=== PATIENT | male | born 1990 | race Caucasian/White ===

== ENCOUNTER 2024-09-03 15:29 | Emergency (ER) | payer MEDICAID ==
[~2024-09-03] VITALS: Ht 175.3 cm; Wt 101.9 kg
[2024-09-03 15:31] VITALS: TEMP 100.6
[2024-09-03 16:20] LABS: LEUKOCYTE ESTERASE ,URINE TRACE (Neg); NITRITES, URINE POSITIVE (Neg); OCCULT BLOOD,URINE MODERATE (Neg)
[2024-09-03 16:25] LABS: UA COLLECTION TYPE VOIDED
[2024-09-03 16:27] LABS: MUCUS STRANDS FEW /LPF (Neg); SQUAMOUS EPITHELIAL CELL,UR MANY /LPF (FEW)
[2024-09-03 16:28] LABS: WBC CLUMPS,URINE MODERATE /HPF (NEGATIVE)
--- NOTE | 2024-09-03 18:14 | Physician Documentation ---
History of Present Illness ~ Chief Complaint: Urinary Symptoms Stated Complaint: FEVER Time Seen by MD: 17:54 HPI Reports urinary symptoms including abnormally colored urine and fever. Denies flank pain, dysuria, cough, N/V/D. Denies concern for STI. Medication Reconciliation Allergies: Coded Allergies: No Known Allergies (Unverified , 09/03/24) Scheduled Sulfamethoxazole/Trimethoprim (Bactrim Ds Tablet), 1 TAB PO Q12H Past Medical History Smoking Status: Current every day smoker Review of Systems All Other Systems at this time: Reviewed and Negative Physical Exam Vital Signs: Temperature: 100.6, Source: Oral, Heart Rate: 121, Respiratory Rate: 18, BP: 119/86, Pulse Oximetry: 99, Weight: 101.900 Oxygen Flow Rate: 0 Physical Exam HEENT: PERRL, moist oral mucosa, EOMI Pulmonary: No respiratory distress MSK: no deformity Skin: w/d/i, no rash Neuro: alert, nonfocal Psych: normal affect Progress Results/Orders Results/Orders Completed Orders - SABINA HERNANDEZ MD Sulfamethox/Trimetho. Ds Tab (Septra Ds (09/03/24 18:20) Vital Signs 09/03/24 09/03/24 09/03/24 15:31 17:17 18:35 Temp 100.6 Pulse 121 85 Resp 18 14 B/P (MAP) 119/86 127/98 Pulse Ox 99 100 O2 Flow Rate 0 Laboratory Tests Test 09/03/24 15:35 Urine Specimen Description Voided Urine Color Yellow Urine Clarity Slightly cloudy Urine pH 6.0 Urine Specific [place] 1.010 Urine Protein 30 H Urine Glucose (UA) Negative Urine Ketones 40 H Urine Occult Blood Moderate H Urine Nitrite Positive H Urine Bilirubin Moderate Urine Urobilinogen 2.0 H Urine Leukocyte Esterase Trace H Urine RBC 20-50 Urine WBC 30-50 H Urine WBC Clumps Moderate Urine Squamous Epithelial Cells Many Urine Transitional Epithelial Cells Few Urine Bacteria 2+ Urine Mucus Few Urine Culture Indicated Rejected for culture Volume Urine Centrifuged 10 ml Urine Comment Medical Decision Making Findings 34 year old male with possible UTI. UA was contaminiated but sufficiently abnormal to treat empirically as UTI. Bactrim, return precautions. Departure Disposition: HOME / SELF CARE / HOMELESS Impression: Primary Impression: Acute urinary tract infection Condition: Stable Discharge Instructions: Urinary Tract Infection, Adult Referrals: NO PRIMARY CARE PROVIDER (PCP) Prescriptions Sulfamethoxazole/Trimethoprim (Bactrim Ds Tablet) 800 Mg-160 Mg Tablet 1 TAB PO Q12H for 7 Days, #14 TAB Prov: SABINA HERNANDEZ MD 09/03/24 Education Educated: Patient Educated regarding: diagnosis, treatment, prognosis, need for follow up Signature Scribe Signature: . Attestation: . SABINA HERNANDEZ MD Sep 03, 2024 18:14
[2024-09-03] MEDS ORDERED: SULF1TAB49 PO (18:21)
[2024-09-03] MEDS: sulfamethoxazole/trimethoprim DS (800/160mg) tablet PO ONE (18:22)
[2024-09-03 18:35] VITALS: BP 127/98; PULSE 85; RESP 14; O2SAT 100
== END 2024-09-03 18:38 | disposition home or self-care (01) ==
LOC: ER 15:30
DX: N39.0 Urinary tract infection, site not specified (principal); F17.200 Nicotine dependence, unspecified, uncomplicated
CPT/HCPCS: 81001; 99283